=== PATIENT | female | born 1965 | race Two or more races ===

== ENCOUNTER 2021-02-12 12:05 | Inpatient (IN) | payer SELFPAY ==
[~2021-02-12] VITALS: Ht 165.1 cm; Wt 98.7 kg
[~2021-02-12 12:05] MED LIST: NO MEDICATIONS
[2021-02-12] MEDS ORDERED: IV NORMAL SALINE 1000ML BAG 1,000 ML IV ONE ×2 (12:45→14:45)
[2021-02-12] MEDS ORDERED: ONDANSETRON PF 4 MG/2 ML VIAL. IV ONE (12:45)
[2021-02-12] MEDS ORDERED: fentaNYL PF VIAL 100 MCG/2 ML VIAL IV ONE (12:45)
[2021-02-12 12:59] LABS: BILIRUBIN,URINE NEGATIVE (NEG); CLARITY,URINE CLOUDY; COLOR,URINE AMBER; NITRITE,URINE NEGATIVE (NEG); PROTEIN,URINE 30 mg/dL (NEG-TRACE)
[2021-02-12] MEDS ORDERED: ACETAMINOPHEN 500 MG TABLET PO ONE (13:00)
[2021-02-12 13:08] LABS: BACTERIA,URINE MODERATE /HPF (0-FEW); WBC,URINE >40 /HPF (0-4)
[2021-02-12 13:11] LABS: BASO # 0.1 x10^3/uL (0.0-0.2); BASO % 1 % (0-3); EOS # 0.1 x10^3/uL (0.0-0.7); EOS % 0 % (0-3); HEMATOCRIT 37.7 % (36.0-47.0); HEMOGLOBIN 12.8 g/dL (12.0-15.5); LYMPH # 3.1 x10^3/uL (1.0-4.8); LYMPH % 17 % (24-48); MEAN CORPUSCULAR HEMOGLOBIN 30 pg (25-35); MEAN CORPUSCULAR HGB CONC 34 g/dL (31-37); MEAN CORPUSCULAR VOLUME 89 fL (79-100); MONO # 2.2 x10^3/uL (0.0-1.1); MONO % 12 % (0-9); NEUT # 12.6 x10^3/uL (1.8-7.7); NEUT % 70 % (31-73); PLATELET COUNT 332 x10^3/uL (140-400); RED BLOOD COUNT 4.26 x10^6/uL (3.50-5.40); RED CELL DISTRIBUTION WIDTH 13.2 % (11.5-14.5)
[2021-02-12 13:52] LABS: CALCIUM 8.8 mg/dL (8.5-10.1); CREATININE 0.7 mg/dL (0.6-1.0); GFR 86.2; POTASSIUM 3.7 mmol/L (3.5-5.1)
[2021-02-12 13:55] LABS: % ATYL 4 % (0-0); % BANDS 4 % (0-9); % LYMPHS 15 % (24-48); % MONOS 6 % (0-10); % SEGS 71 % (35-66); PLT ESTIMATE ADEQUATE (ADEQUATE)
[2021-02-12 13:56] LABS: POLYCHROMASIA SLIGHT
[2021-02-12 13:57] LABS: TOXIC GRANULATION SLIGHT
[2021-02-12 14:04] LABS: ALBUMIN 2.2 g/dL (3.4-5.0); ALBUMIN/GLOBULIN RATIO 0.4 (1.0-1.7); MAGNESIUM 2.3 mg/dL (1.8-2.4); TOTAL BILIRUBIN 0.8 mg/dL (0.2-1.0); TOTAL PROTEIN 7.7 g/dL (6.4-8.2)
--- NOTE | 2021-02-12 14:12 | RAD ---
Exam Date: 02/12/2021 1:[address] ABDOMEN+PELVIS WO Indication: Reason: flank pain, dysuria, fever / Spl. Instructions: / History: . TECHNIQUE: CT examination of the abdomen and pelvis was performed without oral or intravenous contra st. One or more of the following dose reduction techniques were utilized: *Automated exposure control (AEC) *Adjustment of mA and/or kV according to patient size *Use of iterative reconstruction technique *CT scan done according to ALARA, or ALARA/IMAGE GENTLY FINDINGS: The visualized lung bases demonstrate mild subsegmental atelectasis and/or scarring. There is a calcified gallstone. The liver, gallbladder, spleen, pancreas, and adrenal glands are otherwise normal. There is a 4 mm nonobstructing calculus in the left kidney. There is perinephric stranding bilateral ly, right worse than left. The kidneys are otherwise normal bilaterally. No hydronephrosis or hydroureter is seen. No right ur inary tract calculi are seen. Urinary bladder is normal in appearance. Diverticulosis coli is seen without bowel obstruction or inflammation. The appendix is normal. Mild atherosclerotic calcifications are seen. No lymphadenopathy or ascites is seen. Degenerative changes are seen in the spine. IMPRESSION: Perinephric stranding, right more prominent than left, without obstructing urinary tract calculi seen and without hydronephrosis. Findings are suspicious for pyelonephritis, particularly in the setting of fever. Recently passed calculus blood also be in the differential. Correlate clinically. Nonfloating left renal calculus. No hydronephrosis. Diverticulosis coli without bowel inflammation or obstruction. Electronically signed by: Ricky Garcia MD (02/12/2021 2:09 PM) [id number]
[2021-02-12] MEDS ORDERED: cefTRIAXone IV Push 1 GM VIAL. IVP ONE (14:30)
--- NOTE | 2021-02-12 14:55 | ED.ADGEN ---
Past Medical History Past Surgical History: No Surgical History General Adult EDM: Chief Complaint: BACK PAIN - NO INJURY HPI: HPI: Patient is a 55 year old female who presents to the emergency department with reports of dysuria, increased urinary frequency, bilateral flank pain, lower abdominal pain, nausea, and fever for the last 4 days. Patient denies any shortness of breath, cough, chest pain, vomiting, diarrhea, or rash. She denies any known exposure to COVID-19. Patient states she has not been immunized against COVID-19. Patient denies taking anything for relief of her fever prior to arrival. Currently, rates her pain 8 out of 10 on the pain scale. She denies any alleviating or exacerbating factors. Review of Systems: Review of Systems: Complete ROS is negative unless otherwise noted in HPI. Current Medications: Current Medications Medications (Trade) Dose Ordered Sig/William Start Time Stop Time Status Last Admin Dose Admin Acetaminophen (Tylenol) 650 mg PRN Q6HRS PRN 02/12/21 15:15 Acetaminophen/ Hydrocodone Bitart (Lortab 5/325) 2 tab PRN Q4HRS PRN 02/12/21 15:15 Al Hydroxide/Mg Hydroxide (Mylanta Plus Xs) 30 ml PRN Q3HRS PRN 02/12/21 15:15 Bisacodyl (Dulcolax Supp) 10 mg PRN DAILY PRN 02/12/21 15:15 Calcium Carbonate/ Glycine (Tums) 500 mg PRN Q3HRS PRN 02/12/21 15:15 Ceftriaxone Sodium (Rocephin) 1 gm 1X ONCE 02/12/21 14:30 02/12/21 14:31 DC 02/12/21 15:45 1 GM Fentanyl Citrate (Fentanyl 2ml Vial) 50 mcg 1X ONCE 02/12/21 12:45 02/12/21 12:47 DC 02/12/21 13:33 50 MCG Ibuprofen (Motrin) 400 mg PRN Q4HRS PRN 02/12/21 15:15 Magnesium Hydroxide (Milk Of Magnesia) 2,400 mg PRN Q12HR PRN 02/12/21 15:15 Morphine Sulfate (Morphine Sulfate) 2 mg PRN Q1HR PRN 02/12/21 15:15 Ondansetron HCl (Zofran) 4 mg PRN Q6HRS PRN 02/12/21 15:15 Sodium Chloride 1,000 ml @ 1,000 mls/hr 1X ONCE 02/12/21 14:45 02/12/21 15:44 DC 02/12/21 14:45 1,000 MLS/HR Zolpidem Tartrate (Ambien) 5 mg PRN QHS PRN 02/12/21 15:15 Allergies: Allergies: Allergies Coded Allergies Type Severity Reaction Last Updated Verified No Known Drug Allergies 01/08/14 No Physical Exam: PE: See Above Constitutional: Well developed, well nourished, no acute distress, non-toxic appearance, obese [] HENT: Normocephalic, atraumatic, bilateral external ears normal, nose normal. [] Eyes: PERRLA, EOMI, conjunctiva normal, no discharge. [] Neck: Normal range of motion, no stridor. [] Cardiovascular:Heart rate regular rhythm Lungs & Thorax: Respirations even and unlabored, no retractions, no respiratory distress Abdomen: soft, bilateral lower quadrant tenderness to palpation, no rebound tenderness, no guarding, no palpable mass Back: Bilateral CVA tenderness Skin: Warm, dry, no erythema, no rash. [] Extremities: No cyanosis, ROM intact, no edema. [] Neurologic: Alert and oriented X 3, no focal deficits noted. [] Psychologic: Affect normal, judgement normal, mood normal. [] Current Patient Data: Labs: Laboratory Tests Test 02/12/21 12:30 02/12/21 13:00 02/12/21 13:25 Urine Collection Type Unknown Urine Color Lavonne Urine Clarity Cloudy Urine pH 6.0 (<5.0-8.0) Urine Specific [place] 1.015 (1.000-1.030) Urine Protein 30 mg/dL (NEG-TRACE) Urine Glucose (UA) Negative mg/dL (NEG) Urine Ketones (Stick) Negative mg/dL (NEG) Urine Blood Moderate (NEG) Urine Nitrite Negative (NEG) Urine Bilirubin Negative (NEG) Urine Urobilinogen Dipstick 2.0 mg/dL (0.2 mg/dL) Urine Leukocyte Esterase Large (NEG) Urine RBC 3-5 /HPF (0-2) Urine WBC >40 /HPF (0-4) Urine Squamous Epithelial Cells Few /LPF Urine Bacteria Moderate /HPF (0-FEW) Urine Mucus Slight /LPF White Blood Count 18.0 x10^3/uL (4.0-11.0) H Red Blood Count 4.26 x10^6/uL (3.50-5.40) Hemoglobin 12.8 g/dL (12.0-15.5) Hematocrit 37.7 % (36.0-47.0) Mean Corpuscular Volume 89 fL (79-100) Mean Corpuscular Hemoglobin 30 pg (25-35) Mean Corpuscular Hemoglobin Concent 34 g/dL (31-37) Red Cell Distribution Width 13.2 % (11.5-14.5) Platelet Count 332 x10^3/uL (140-400) Neutrophils (%) (Auto) 70 % (31-73) Lymphocytes (%) (Auto) 17 % (24-48) L Monocytes (%) (Auto) 12 % (0-9) H Eosinophils (%) (Auto) 0 % (0-3) Basophils (%) (Auto) 1 % (0-3) Neutrophils # (Auto) 12.6 x10^3/uL (1.8-7.7) H Lymphocytes # (Auto) 3.1 x10^3/uL (1.0-4.8) Monocytes # (Auto) 2.2 x10^3/uL (0.0-1.1) H Eosinophils # (Auto) 0.1 x10^3/uL (0.0-0.7) Basophils # (Auto) 0.1 x10^3/uL (0.0-0.2) Segmented Neutrophils % 71 % (35-66) H Band Neutrophils % 4 % (0-9) Lymphocytes % 15 % (24-48) L Atypical Lymphocytes % (Manual) 4 % (0-0) H Monocytes % 6 % (0-10) Toxic Granulation Slight Platelet Estimate Adequate (ADEQUATE) Polychromasia Slight Sodium Level 133 mmol/L (136-145) L Potassium Level 3.7 mmol/L (3.5-5.1) Chloride Level 97 mmol/L (98-107) L Carbon Dioxide Level 29 mmol/L (21-32) Anion Gap 7 (6-14) Blood Urea Nitrogen 9 mg/dL (7-20) Creatinine 0.7 mg/dL (0.6-1.0) Estimated GFR (Cockcroft-Gault) 86.2 BUN/Creatinine Ratio 13 (6-20) Glucose Level 121 mg/dL (70-99) H Calcium Level 8.8 mg/dL (8.5-10.1) Magnesium Level 2.3 mg/dL (1.8-2.4) Total Bilirubin 0.8 mg/dL (0.2-1.0) Aspartate Amino Transferase (AST) 44 U/L (15-37) H Alanine Aminotransferase (ALT) 62 U/L (14-59) H Alkaline Phosphatase 229 U/L (46-116) H Total Protein 7.7 g/dL (6.4-8.2) Albumin 2.2 g/dL (3.4-5.0) L Albumin/Globulin Ratio 0.4 (1.0-1.7) L Lipase 196 U/L (73-393) Laboratory Tests 02/12/21 13:00 Laboratory Tests 02/12/21 13:25 Vital Signs: Vital Signs Date Time Temp Pulse Resp B/P (MAP) Pulse Ox O2 Delivery O2 Flow Rate FiO2 02/12/21 15:30 62 97/53 (68) Room Air 02/12/21 15:00 16 02/12/21 13:33 98 02/12/21 12:54 100.6 100.6 EKG: EKG: [] Heart Score: C/O Chest Pain: No Radiology/Procedures: Radiology/Procedures: PROCEDURE: CT ABDOMEN PELVIS WO CONTRAST Exam Date: 02/12/2021 1:[address] ABDOMEN+PELVIS WO Indication: Reason: flank pain, dysuria, fever / Spl. Instructions: / History: . TECHNIQUE: CT examination of the abdomen and pelvis was performed without oral or intravenous contrast. One or more of the following dose reduction techniques were utilized: *Automated exposure control (AEC) *Adjustment of mA and/or kV according to patient size *Use of iterative reconstruction technique *CT scan done according to ALARA, or ALARA/IMAGE GENTLY FINDINGS: The visualized lung bases demonstrate mild subsegmental atelectasis and/or scarring. There is a calcified gallstone. The liver, gallbladder, spleen, pancreas, and adrenal glands are otherwise normal. There is a 4 mm nonobstructing calculus in the left kidney. There is perinephric stranding bilaterally, right worse than left. The kidneys are otherwise normal bilaterally. No hydronephrosis or hydroureter is seen. No right urinary tract calculi are seen. Urinary bladder is normal in appearance. Diverticulosis coli is seen without bowel obstruction or inflammation. The appendix is normal. Mild atherosclerotic calcifications are seen. No lymphadenopathy or ascites is seen. Degenerative changes are seen in the spine. IMPRESSION: Perinephric stranding, right more prominent than left, without obstructing urinary tract calculi seen and without hydronephrosis. Findings are suspicious for pyelonephritis, particularly in the setting of fever. Recently passed calculus blood also be in the differential. Correlate clinically. Nonfloating left renal calculus. No hydronephrosis. Diverticulosis coli without bowel inflammation or obstruction. Electronically signed by: Alex Garcia MD (02/12/2021 2:09 PM) [id number] DICTATED and SIGNED BY: ALEX GARCIA MD DATE: 02/12/21 [id number] [] Course & Med Decision Making: Course & Med Decision Making Pertinent Labs and Imaging studies reviewed. (See chart for details) [id number]-spoke with Dr. Fuentes who is the admitting physician, and care was assumed following discussion of patient. Will admit for acute pyelonephritis. Patient's vital signs stable patient remains afebrile, appears nontoxic, r espirations even and unlabored. Patient will be admitted to the medical/surgical floor. Patient's case and plan of care also discussed with Dr. Muhammad [] Dorothy Disclaimer: Dorothy Disclaimer: This electronic medical record was generated, in whole or in part, using a voice recognition dictation system. Departure Departure Impression: Primary Impression: Acute pyelonephritis Disposition: ADMITTED INPATIENT Admitting Physician: MARIN Membreno) Condition: STABLE Referrals: NO PCP (PCP) INDIGO AUGUSTINE TRACE CLERK Feb 12, 2021 14:55
--- NOTE | 2021-02-12 15:10 | PDOC1 ---
History and Physical Date of Admission Date of Admission DATE: 02/12/21 TIME: 14:56 Identification/Chief Complaint Chief Complaint Dysuria, flank pain Source Source: Caregiver, Chart review, Patient History of Present Illness History of Present Illness Patient 55-year-old primary Burmese-speaking female who presents to the ED with complaints of constant dysuria for the past 4 days. She reports associated bilateral flank pain and abdominal pain. She did not take anything for symptoms and denies any fever. Upon arrival in the ED she was febrile with fever 100.6 F. Labs on admission showed WBC 18, sodium 133, CBG 121, AST 44, ALT 62, alk phos 229, albumin 2.2. CT abdomen pelvis showed perinephric stranding, right more prominent than left, without obstructing urinary tract calculi seen and without hydronephrosis. She received 1 L normal saline and Rocephin 1 g in the ED. Will admit patient for further medical management. Past Medical History Past Medical History Denies significant past medical history Cardiovascular: No pertinent hx Pulmonary: No pertinent hx GI: No pertinent hx Heme/Onc: No pertinent hx Hepatobiliary: No pertinent hx Psych: No pertinent hx Rheumatologic: No pertinent hx Infectious disease: No pertinent hx Renal/: No pertinent hx Endocrine: No pertinent hx Past Surgical History Past Surgical History Right shoulder surgery Past Surgical History: No pertinent history Family History Family History Denies significant family history Social History Smoke: No ALCOHOL: none Drugs: None Current Problem List Problem List Problems Medical Problems: (1) Acute pyelonephritis Status: Acute Current Medications Current Medications Current Medications Sodium Chloride 1,000 ml @ 1,000 mls/hr 1X ONCE IV Last administered on 02/12/21at 13:30; Start 02/12/21 at 12:45; Stop 02/12/21 at 13:44; Status DC Ondansetron HCl (Zofran) 4 mg 1X ONCE IV Last administered on 02/12/21at 13:32; Start 02/12/21 at 12:45; Stop 02/12/21 at 12:47; Status DC Fentanyl Citrate (Fentanyl 2ml Vial) 50 mcg 1X ONCE IV Last administered on 02/12/21at 13:33; Start 02/12/21 at 12:45; Stop 02/12/21 at 12:47; Status DC Acetaminophen (Tylenol) 1,000 mg 1X ONCE PO Last administered on 02/12/21at 13:33; Start 02/12/21 at 13:00; Stop 02/12/21 at 13:01; Status DC Ceftriaxone Sodium (Rocephin) 1 gm 1X ONCE IVP ; Start 02/12/21 at 14:30; Stop 02/12/21 at 14:31; Status DC Sodium Chloride 1,000 ml @ 1,000 mls/hr 1X ONCE IV ; Start 02/12/21 at 14:45; Stop 02/12/21 at 15:44 Active Scripts Active Reported [No Medications] Allergies Allergies: Coded Allergies: No Known Drug Allergies (Unverified , 01/08/14) ROS Review of System GENERAL: No history of weight change, weakness or fevers. SKIN: No bruising, hair changes or rashes. EYES: No blurred, double or loss of vision. NOSE AND THROAT: No history of nosebleeds, hoarseness or sore throat. HEART: Denies chest pain, denies palpitations. LUNGS: Denies cough, hemoptysis, wheezing or shortness of breath. GASTROINTESTINAL: Abdominal pain. Denies nausea, vomiting. GENITOURINARY: Dysuria, bilateral flank pain. Denies hematuria. NEUROLOGIC: Denies history of numbness, tingling, tremor or weakness. PSYCHIATRIC: Denies anxiety, denies depression. ENDOCRINE: No history of heat or cold intolerance, polyuria or polydipsia. EXTREMITIES: Denies muscle weakness, joint pain, pain on walking or stiffness. Physical Exam Physical Exam General: Alert, Oriented X3, Cooperative, moderate distress HEENT: PERRLA, EOMI Lungs: Clear to auscultation, Normal air movement Heart: RRR, no murmurs Cardiovascular: S1, S2 Abdomen: Normal bowel sounds, Soft, bilateral flank tenderness. Extremities: No clubbing, No cyanosis Skin: No rashes, No significant lesion Neuro: Normal speech, Normal tone, Sensation intact Psych/Mental Status: Mental status NL, Mood NL Vitals Vitals Vital Signs Date Time Temp Pulse Resp B/P (MAP) Pulse Ox O2 Delivery O2 Flow Rate FiO2 02/12/21 13:33 16 98 Room Air 02/12/21 12:54 100.6 80 106/53 (99) 100.6 Labs Labs Laboratory Tests Test 02/12/21 12:30 02/12/21 13:00 02/12/21 13:25 Urine Collection Type Unknown Urine Color [place] Urine Clarity Cloudy Urine pH 6.0 (<5.0-8.0) Urine Specific [place] 1.015 (1.000-1.030) Urine Protein 30 mg/dL (NEG-TRACE) Urine Glucose (UA) Negative mg/dL (NEG) Urine Ketones (Stick) Negative mg/dL (NEG) Urine Blood Moderate (NEG) Urine Nitrite Negative (NEG) Urine Bilirubin Negative (NEG) Urine Urobilinogen Dipstick 2.0 mg/dL (0.2 mg/dL) Urine Leukocyte Esterase Large (NEG) Urine RBC 3-5 /HPF (0-2) Urine WBC >40 /HPF (0-4) Urine Squamous Epithelial Cells Few /LPF Urine Bacteria Moderate /HPF (0-FEW) Urine Mucus Slight /LPF White Blood Count 18.0 x10^3/uL (4.0-11.0) Red Blood Count 4.26 x10^6/uL (3.50-5.40) Hemoglobin 12.8 g/dL (12.0-15.5) Hematocrit 37.7 % (36.0-47.0) Mean Corpuscular Volume 89 fL (79-100) Mean Corpuscular Hemoglobin 30 pg (25-35) Mean Corpuscular Hemoglobin Concent 34 g/dL (31-37) Red Cell Distribution Width 13.2 % (11.5-14.5) Platelet Count 332 x10^3/uL (140-400) Neutrophils (%) (Auto) 70 % (31-73) Lymphocytes (%) (Auto) 17 % (24-48) Monocytes (%) (Auto) 12 % (0-9) Eosinophils (%) (Auto) 0 % (0-3) Basophils (%) (Auto) 1 % (0-3) Neutrophils # (Auto) 12.6 x10^3/uL (1.8-7.7) Lymphocytes # (Auto) 3.1 x10^3/uL (1.0-4.8) Monocytes # (Auto) 2.2 x10^3/uL (0.0-1.1) Eosinophils # (Auto) 0.1 x10^3/uL (0.0-0.7) Basophils # (Auto) 0.1 x10^3/uL (0.0-0.2) Segmented Neutrophils % 71 % (35-66) Band Neutrophils % 4 % (0-9) Lymphocytes % 15 % (24-48) Atypical Lymphocytes % (Manual) 4 % (0-0) Monocytes % 6 % (0-10) Toxic Granulation Slight Platelet Estimate Adequate (ADEQUATE) Polychromasia Slight Sodium Level 133 mmol/L (136-145) Potassium Level 3.7 mmol/L (3.5-5.1) Chloride Level 97 mmol/L (98-107) Carbon Dioxide Level 29 mmol/L (21-32) Anion Gap 7 (6-14) Blood Urea Nitrogen 9 mg/dL (7-20) Creatinine 0.7 mg/dL (0.6-1.0) Estimated GFR (Cockcroft-Gault) 86.2 BUN/Creatinine Ratio 13 (6-20) Glucose Level 121 mg/dL (70-99) Calcium Level 8.8 mg/dL (8.5-10.1) Magnesium Level 2.3 mg/dL (1.8-2.4) Total Bilirubin 0.8 mg/dL (0.2-1.0) Aspartate Amino Transf (AST/SGOT) 44 U/L (15-37) Alanine Aminotransferase (ALT/SGPT) 62 U/L (14-59) Alkaline Phosphatase 229 U/L (46-116) Total Protein 7.7 g/dL (6.4-8.2) Albumin 2.2 g/dL (3.4-5.0) Albumin/Globulin Ratio 0.4 (1.0-1.7) Lipase 196 U/L (73-393) Laboratory Tests Test 02/12/21 12:30 02/12/21 13:00 02/12/21 13:25 Urine Collection Type Unknown Urine Color [place] Urine Clarity Cloudy Urine pH 6.0 (<5.0-8.0) Urine Specific [place] 1.015 (1.000-1.030) Urine Protein 30 mg/dL (NEG-TRACE) Urine Glucose (UA) Negative mg/dL (NEG) Urine Ketones (Stick) Negative mg/dL (NEG) Urine Blood Moderate (NEG) Urine Nitrite Negative (NEG) Urine Bilirubin Negative (NEG) Urine Urobilinogen Dipstick 2.0 mg/dL (0.2 mg/dL) Urine Leukocyte Esterase Large (NEG) Urine RBC 3-5 /HPF (0-2) Urine WBC >40 /HPF (0-4) Urine Squamous Epithelial Cells Few /LPF Urine Bacteria Moderate /HPF (0-FEW) Urine Mucus Slight /LPF White Blood Count 18.0 x10^3/uL (4.0-11.0) Red Blood Count 4.26 x10^6/uL (3.50-5.40) Hemoglobin 12.8 g/dL (12.0-15.5) Hematocrit 37.7 % (36.0-47.0) Mean Corpuscular Volume 89 fL (79-100) Mean Corpuscular Hemoglobin 30 pg (25-35) Mean Corpuscular Hemoglobin Concent 34 g/dL (31-37) Red Cell Distribution Width 13.2 % (11.5-14.5) Platelet Count 332 x10^3/uL (140-400) Neutrophils (%) (Auto) 70 % (31-73) Lymphocytes (%) (Auto) 17 % (24-48) Monocytes (%) (Auto) 12 % (0-9) Eosinophils (%) (Auto) 0 % (0-3) Basophils (%) (Auto) 1 % (0-3) Neutrophils # (Auto) 12.6 x10^3/uL (1.8-7.7) Lymphocytes # (Auto) 3.1 x10^3/uL (1.0-4.8) Monocytes # (Auto) 2.2 x10^3/uL (0.0-1.1) Eosinophils # (Auto) 0.1 x10^3/uL (0.0-0.7) Basophils # (Auto) 0.1 x10^3/uL (0.0-0.2) Segmented Neutrophils % 71 % (35-66) Band Neutrophils % 4 % (0-9) Lymphocytes % 15 % (24-48) Atypical Lymphocytes % (Manual) 4 % (0-0) Monocytes % 6 % (0-10) Toxic Granulation Slight Platelet Estimate Adequate (ADEQUATE) Polychromasia Slight Sodium Level 133 mmol/L (136-145) Potassium Level 3.7 mmol/L (3.5-5.1) Chloride Level 97 mmol/L (98-107) Carbon Dioxide Level 29 mmol/L (21-32) Anion Gap 7 (6-14) Blood Urea Nitrogen 9 mg/dL (7-20) Creatinine 0.7 mg/dL (0.6-1.0) Estimated GFR (Cockcroft-Gault) 86.2 BUN/Creatinine Ratio 13 (6-20) Glucose Level 121 mg/dL (70-99) Calcium Level 8.8 mg/dL (8.5-10.1) Magnesium Level 2.3 mg/dL (1.8-2.4) Total Bilirubin 0.8 mg/dL (0.2-1.0) Aspartate Amino Transf (AST/SGOT) 44 U/L (15-37) Alanine Aminotransferase (ALT/SGPT) 62 U/L (14-59) Alkaline Phosphatase 229 U/L (46-116) Total Protein 7.7 g/dL (6.4-8.2) Albumin 2.2 g/dL (3.4-5.0) Albumin/Globulin Ratio 0.4 (1.0-1.7) Lipase 196 U/L (73-393) Images Images PATIENT: MONIQUE HAGEN ACCOUNT: [id number] : 1965 LOCATION: ER AGE: 55 SEX: F EXAM STATUS: REG ER ORD. PHYSICIAN: INDIGO AUGUSTINE APRN REASON: flank pain, dysuria, fever PROCEDURE: CT ABDOMEN PELVIS WO CONTRAST Exam Date: 02/12/2021 1:[address] ABDOMEN+PELVIS WO Indication: Reason: flank pain, dysuria, fever / Spl. Instructions: / History: . TECHNIQUE: CT examination of the abdomen and pelvis was performed without oral or intravenous contrast. One or more of the following dose reduction techniques were utilized: *Automated exposure control (AEC) *Adjustment of mA and/or kV according to patient size *Use of iterative reconstruction technique *CT scan done according to ALARA, or ALARA/IMAGE GENTLY FINDINGS: The visualized lung bases demonstrate mild subsegmental atelectasis and/or scarring. There is a calcified gallstone. The liver, gallbladder, spleen, pancreas, and adrenal glands are otherwise normal. There is a 4 mm nonobstructing calculus in the left kidney. There is perinephric stranding bilaterally, right worse than left. The kidneys are otherwise normal bilaterally. No hydronephrosis or hydroureter is seen. No right urinary tract calculi are seen. Urinary bladder is normal in appearance. Diverticulosis coli is seen without bowel obstruction or inflammation. The appendix is normal. Mild atherosclerotic calcifications are seen. No lymphadenopathy or ascites is seen. Degenerative changes are seen in the spine. IMPRESSION: Perinephric stranding, right more prominent than left, without obstructing urinary tract calculi seen and without hydronephrosis. Findings are suspicious for pyelonephritis, particularly in the setting of fever. Recently passed calculus blood also be in the differential. Correlate clinically. Nonfloating left renal calculus. No hydronephrosis. Diverticulosis coli without bowel inflammation or obstruction. VTE Prophylaxis Ordered VTE Prophylaxis Devices: No VTE Pharmacological Prophylaxi: Yes Assessment/Plan Assessment/Plan Sepsis Right pyelonephritis Left nonobstructing 4 mm kidney stone Transaminitis Severe malnutrition Diverticulosis Plan: Will provide sepsis fluid bolus based on ideal body weight and continue treatment of pyelonephritis with Rocephin 1 gm qd Follow urine culture; provide pain management Strain urine for kidney stones Flomax daily If abdominal pain and transaminitis is not resolved with fluids, will place consultation to GI. FEN - Cardiac diet PPX - Lovenox FULL CODE Dispo - inpatient for above Advance Care Planning: Total time spent [id number] with patient 16 minutes in discussion with goals of care, comfort care, end-of-life care, pain management, code status; patient names her son (Sunil Hagen)as surrogate decision-maker. Justifications for Admission Other Justification ALLEN URENA MD Feb 12, 2021 15:10
[2021-02-12] MEDS ORDERED: ONDANSETRON PF 4 MG/2 ML VIAL. IVP PRN (15:15)
[2021-02-12] MEDS ORDERED: MAG HYDROX/ALUMINUM HYD/SIMETH 30 ML ORAL.SUSP PO PRN (15:15)
[2021-02-12] MEDS ORDERED: BISACODYL 10 MG SUPP.RECT. PR PRN (15:15)
[2021-02-12] MEDS ORDERED: ZOLPIDEM 5 MG TABLET. PO PRN (15:15)
[2021-02-12] MEDS ORDERED: HYDROcodone/APAP 5/325MG 1 TAB TABLET PO PRN ×2 (15:15)
[2021-02-12] MEDS ORDERED: CALCIUM CARBONATE 500 MG TAB.CHEW PO PRN (15:15)
[2021-02-12] MEDS ORDERED: IBUPROFEN 400 MG TABLET. PO PRN (15:15)
[2021-02-12] MEDS ORDERED: MAGNESIUM HYDROXIDE 2,400 MG/30 ML ORAL.SUSP. PO PRN (15:15)
[2021-02-12] MEDS ORDERED: ACETAMINOPHEN 325 MG TABLET. PO PRN (15:15)
[2021-02-12] MEDS ORDERED: MORPHINE SULFATE 2 MG/ML INJ. IV PRN (15:15)
[2021-02-12] MEDS: TAMSULOSIN 0.4 MG CAP.ER.24H. PO SCH (16:00)
[2021-02-12] MEDS: ENOXAPARIN 40 MG/0.4 ML SYRINGE. SQ SCH (16:00)
[2021-02-12 17:24] VITALS: BP 113/41
[2021-02-12 19:00] VITALS: BP 100/43
[2021-02-12 23:00] VITALS: BP 108/43
[2021-02-13] VITALS (7 sets, daily range): BP systolic 97–117; BP diastolic 44–62
[2021-02-13] MEDS: TAMSULOSIN 0.4 MG CAP.ER.24H. PO SCH (08:46)
--- NOTE | 2021-02-13 11:19 | PDOC ---
[facility] PROGRESS NOTE Date of Service DOS: DATE: 02/13/21 TIME: 11:16 Chief Complaint Chief Complaint Sepsis Right pyelonephritis Left nonobstructing 4 mm kidney stone Transaminitis Severe malnutrition Diverticulosis Plan: Will provide sepsis fluid bolus based on ideal body weight and continue treat ment of pyelonephritis with Rocephin 1 gm qd Follow urine culture; provide pain management Strain urine for kidney stones Flomax daily If abdominal pain and transaminitis is not resolved with fluids, will place consultation to GI. FEN - Cardiac diet PPX - Lovenox FULL CODE Dispo - inpatient for above Advance Care Planning: Total time spent [id number] with patient 16 minutes in discussion with goals of care, comfort care, end-of-life care, pain management, code status; patient names her son (Sunil Hagen) as surrogate decision-maker History of Present Illness History of Present Illness Patient 55-year-old primary Kinyarwanda-speaking female who presents to the ED with complaints of constant dysuria for the past 4 days. She reports associated bilateral flank pain and abdominal pain. She did not take anything for symptoms and denies any fever. Upon arrival in the ED she was febrile with fever 100.6 F. Labs on admission showed WBC 18, sodium 133, CBG 121, AST 44, ALT 62, alk phos 229, albumin 2.2. CT abdomen pelvis showed perinephric stranding, right more prominent than left, without obstructing urinary tract calculi seen and without hydronephrosis. She received 1 L normal saline and Rocephin 1 g in the ED. Will admit patient for further medical management. 02/13/2021: She denies any fever, nausea, vomiting. Some abdominal pain; poor appetite. Recommended to advance diet as tolerated and if successful will discharge tomorrow on oral antibiotics to complete outpatient regimen. Vitals/I&O Vitals/I&O: Vital Signs Date Time Temp Pulse Resp B/P (MAP) Pulse Ox O2 Delivery O2 Flow Rate FiO2 02/13/21 07:00 97.8 69 18 109/51 (70) 96 Room Air 97.8 Physical Exam General: Alert, Cooperative, No acute distress Heart: Regular rate Lungs: Clear Abdomen: Normal bowel sounds, Soft Extremities: No clubbing, No cyanosis Skin: No rashes, No breakdown Labs Labs: Laboratory Tests Test 02/12/21 12:30 02/12/21 13:00 02/12/21 13:25 Urine Collection Type Unknown Urine Color [place] Urine Clarity Cloudy Urine pH 6.0 (<5.0-8.0) Urine Specific [place] 1.015 (1.000-1.030) Urine Protein 30 mg/dL (NEG-TRACE) Urine Glucose (UA) Negative mg/dL (NEG) Urine Ketones (Stick) Negative mg/dL (NEG) Urine Blood Moderate (NEG) Urine Nitrite Negative (NEG) Urine Bilirubin Negative (NEG) Urine Urobilinogen Dipstick 2.0 mg/dL (0.2 mg/dL) Urine Leukocyte Esterase Large (NEG) Urine RBC 3-5 /HPF (0-2) Urine WBC >40 /HPF (0-4) Urine Squamous Epithelial Cells Few /LPF Urine Bacteria Moderate /HPF (0-FEW) Urine Mucus Slight /LPF White Blood Count 18.0 x10^3/uL (4.0-11.0) Red Blood Count 4.26 x10^6/uL (3.50-5.40) Hemoglobin 12.8 g/dL (12.0-15.5) Hematocrit 37.7 % (36.0-47.0) Mean Corpuscular Volume 89 fL (79-100) Mean Corpuscular Hemoglobin 30 pg (25-35) Mean Corpuscular Hemoglobin Concent 34 g/dL (31-37) Red Cell Distribution Width 13.2 % (11.5-14.5) Platelet Count 332 x10^3/uL (140-400) Neutrophils (%) (Auto) 70 % (31-73) Lymphocytes (%) (Auto) 17 % (24-48) Monocytes (%) (Auto) 12 % (0-9) Eosinophils (%) (Auto) 0 % (0-3) Basophils (%) (Auto) 1 % (0-3) Neutrophils # (Auto) 12.6 x10^3/uL (1.8-7.7) Lymphocytes # (Auto) 3.1 x10^3/uL (1.0-4.8) Monocytes # (Auto) 2.2 x10^3/uL (0.0-1.1) Eosinophils # (Auto) 0.1 x10^3/uL (0.0-0.7) Basophils # (Auto) 0.1 x10^3/uL (0.0-0.2) Segmented Neutrophils % 71 % (35-66) Band Neutrophils % 4 % (0-9) Lymphocytes % 15 % (24-48) Atypical Lymphocytes % (Manual) 4 % (0-0) Monocytes % 6 % (0-10) Toxic Granulation Slight Platelet Estimate Adequate (ADEQUATE) Polychromasia Slight Sodium Level 133 mmol/L (136-145) Potassium Level 3.7 mmol/L (3.5-5.1) Chloride Level 97 mmol/L (98-107) Carbon Dioxide Level 29 mmol/L (21-32) Anion Gap 7 (6-14) Blood Urea Nitrogen 9 mg/dL (7-20) Creatinine 0.7 mg/dL (0.6-1.0) Estimated GFR (Cockcroft-Gault) 86.2 BUN/Creatinine Ratio 13 (6-20) Glucose Level 121 mg/dL (70-99) Calcium Level 8.8 mg/dL (8.5-10.1) Magnesium Level 2.3 mg/dL (1.8-2.4) Total Bilirubin 0.8 mg/dL (0.2-1.0) Aspartate Amino Transf (AST/SGOT) 44 U/L (15-37) Alanine Aminotransferase (ALT/SGPT) 62 U/L (14-59) Alkaline Phosphatase 229 U/L (46-116) Total Protein 7.7 g/dL (6.4-8.2) Albumin 2.2 g/dL (3.4-5.0) Albumin/Globulin Ratio 0.4 (1.0-1.7) Lipase 196 U/L (73-393) Assessment and Plan Assessmemt and Plan Problems Medical Problems: (1) Acute pyelonephritis Status: Acute Comment Review of Relevant I have reviewed the following items emmie (where applicable) has been applied. Medications: Current Medications Medications (Trade) Dose Ordered Sig/William Route PRN Reason Start Time Stop Time Status Last Admin Dose Admin Sodium Chloride 1,000 ml @ 1,000 mls/hr 1X ONCE IV 02/12/21 12:45 02/12/21 13:44 DC 02/12/21 13:30 Ondansetron HCl (Zofran) 4 mg 1X ONCE IV 02/12/21 12:45 02/12/21 12:47 DC 02/12/21 13:32 Fentanyl Citrate (Fentanyl 2ml Vial) 50 mcg 1X ONCE IV 02/12/21 12:45 02/12/21 12:47 DC 02/12/21 13:33 Acetaminophen (Tylenol) 1,000 mg 1X ONCE PO 02/12/21 13:00 02/12/21 13:01 DC 02/12/21 13:33 Ceftriaxone Sodium (Rocephin) 1 gm 1X ONCE IVP 02/12/21 14:30 02/12/21 14:31 DC 02/12/21 15:45 Sodium Chloride 1,000 ml @ 1,000 mls/hr 1X ONCE IV 02/12/21 14:45 02/12/21 15:44 DC 02/12/21 14:45 Tamsulosin HCl (Flomax) 0.4 mg DAILY PO 02/12/21 16:00 02/13/21 08:46 Acetaminophen/ Hydrocodone Bitart (Lortab 5/325) 1 tab PRN Q4HRS PRN PO MILD PAIN 1-3 02/12/21 15:15 02/12/21 22:02 Justifications for Admission Other Justification ALLEN URENA MD Feb 13, 2021 11:19
--- NOTE | 2021-02-13 11:26 | PDOC ---
Renal-Progress Notes Subjective Notes Notes STILL SOME FLANK PAIN History of Present Illness Hx of present illness NO ACUTE CHANGES Vitals Vitals Vital Signs Date Time Temp Pulse Resp B/P (MAP) Pulse Ox O2 Delivery O2 Flow Rate FiO2 02/13/21 07:00 97.8 69 18 109/51 (70) 96 Room Air 97.8 Weight Weight [ ] Labs Labs Laboratory Tests Test 02/12/21 12:30 02/12/21 13:00 02/12/21 13:25 Urine Collection Type Unknown Urine Color [place] Urine Clarity Cloudy Urine pH 6.0 (<5.0-8.0) Urine Specific [place] 1.015 (1.000-1.030) Urine Protein 30 mg/dL (NEG-TRACE) Urine Glucose (UA) Negative mg/dL (NEG) Urine Ketones (Stick) Negative mg/dL (NEG) Urine Blood Moderate (NEG) Urine Nitrite Negative (NEG) Urine Bilirubin Negative (NEG) Urine Urobilinogen Dipstick 2.0 mg/dL (0.2 mg/dL) Urine Leukocyte Esterase Large (NEG) Urine RBC 3-5 /HPF (0-2) Urine WBC >40 /HPF (0-4) Urine Squamous Epithelial Cells Few /LPF Urine Bacteria Moderate /HPF (0-FEW) Urine Mucus Slight /LPF White Blood Count 18.0 x10^3/uL (4.0-11.0) Red Blood Count 4.26 x10^6/uL (3.50-5.40) Hemoglobin 12.8 g/dL (12.0-15.5) Hematocrit 37.7 % (36.0-47.0) Mean Corpuscular Volume 89 fL (79-100) Mean Corpuscular Hemoglobin 30 pg (25-35) Mean Corpuscular Hemoglobin Concent 34 g/dL (31-37) Red Cell Distribution Width 13.2 % (11.5-14.5) Platelet Count 332 x10^3/uL (140-400) Neutrophils (%) (Auto) 70 % (31-73) Lymphocytes (%) (Auto) 17 % (24-48) Monocytes (%) (Auto) 12 % (0-9) Eosinophils (%) (Auto) 0 % (0-3) Basophils (%) (Auto) 1 % (0-3) Neutrophils # (Auto) 12.6 x10^3/uL (1.8-7.7) Lymphocytes # (Auto) 3.1 x10^3/uL (1.0-4.8) Monocytes # (Auto) 2.2 x10^3/uL (0.0-1.1) Eosinophils # (Auto) 0.1 x10^3/uL (0.0-0.7) Basophils # (Auto) 0.1 x10^3/uL (0.0-0.2) Segmented Neutrophils % 71 % (35-66) Band Neutrophils % 4 % (0-9) Lymphocytes % 15 % (24-48) Atypical Lymphocytes % (Manual) 4 % (0-0) Monocytes % 6 % (0-10) Toxic Granulation Slight Platelet Estimate Adequate (ADEQUATE) Polychromasia Slight Sodium Level 133 mmol/L (136-145) Potassium Level 3.7 mmol/L (3.5-5.1) Chloride Level 97 mmol/L (98-107) Carbon Dioxide Level 29 mmol/L (21-32) Anion Gap 7 (6-14) Blood Urea Nitrogen 9 mg/dL (7-20) Creatinine 0.7 mg/dL (0.6-1.0) Estimated GFR (Cockcroft-Gault) 86.2 BUN/Creatinine Ratio 13 (6-20) Glucose Level 121 mg/dL (70-99) Calcium Level 8.8 mg/dL (8.5-10.1) Magnesium Level 2.3 mg/dL (1.8-2.4) Total Bilirubin 0.8 mg/dL (0.2-1.0) Aspartate Amino Transf (AST/SGOT) 44 U/L (15-37) Alanine Aminotransferase (ALT/SGPT) 62 U/L (14-59) Alkaline Phosphatase 229 U/L (46-116) Total Protein 7.7 g/dL (6.4-8.2) Albumin 2.2 g/dL (3.4-5.0) Albumin/Globulin Ratio 0.4 (1.0-1.7) Lipase 196 U/L (73-393) Review of Systems Constitutional: yes: fever, weakness, alert Ears/Nose/Throat: Yes: no symptom reported Eyes: Yes: no symptom reported Gastrointestional: Yes: nausea, diarrhea Genitourinary: Yes: dysuria Musculoskeletal: Yes: other (RIGHT FLANK PAIN) Skin: Yes no symptom reported Psychiatric/Neurological: Yes: no symptom reported Endocrine: Yes: no symptom reported Physical Exam General Appearance: no apparent distress Skin: warm Respiratory: bilateral CTA Heart: S1S2 Abdomen: soft, bowel sounds present Genitourinary: bladder flat Extremities: pulses present, no edema Neurology: alert, oriented Assessment Assessment IMP UTI-PYELONEPHRITIS SEPSIS NON OBSTRUCTING LEFT RENAL STONE LEUCOCYTOSIS TRANSAMINITIS PLAN HYDRATION ANTIBIOTICS CHANGE TO FLUOROQUINOLONE IF NOT BETTER WILL FOLLOW ANGEL LAURENT MD Feb 13, 2021 11:26
[2021-02-13] MEDS: IV 1/2 NORMAL SALINE 1,000 ML IV SCH ×2 (13:36→22:15)
[2021-02-13] MEDS ORDERED: cefTRIAXone IV Push 1 GM VIAL. IVP SCH (15:00)
[2021-02-13] MEDS: ENOXAPARIN 40 MG/0.4 ML SYRINGE. SQ SCH (18:33)
[2021-02-13] MEDS: LACTOBACILLUS RHAMNOSUS GG 1 CAPSULE. PO SCH (20:11)
[2021-02-14 03:07] VITALS: BP 104/35
[2021-02-14 05:52] LABS: CALCIUM 8.4 mg/dL (8.5-10.1); CREATININE 0.6 mg/dL (0.6-1.0); POTASSIUM 3.9 mmol/L (3.5-5.1)
[2021-02-14 07:00] VITALS: BP 116/77
[2021-02-14] MEDS: IV 1/2 NORMAL SALINE 1,000 ML IV SCH (08:10)
[2021-02-14] MEDS: TAMSULOSIN 0.4 MG CAP.ER.24H. PO SCH (08:10)
[2021-02-14] MEDS: LACTOBACILLUS RHAMNOSUS GG 1 CAPSULE. PO SCH (08:10)
--- NOTE | 2021-02-14 08:40 | PDOC ---
[facility] [facility] PROGRESS NOTE Date of Service DOS: DATE: 02/14/21 TIME: 08:38 Chief Complaint Chief Complaint Sepsis Right pyelonephritis Left nonobstructing 4 mm kidney stone Transaminitis Severe malnutrition Diverticulosis Plan: Will provide sepsis fluid bolus based on ideal body weight and continue treat ment of pyelonephritis with Rocephin 1 gm qd Follow urine culture; provide pain management Strain urine for kidney stones Flomax daily If abdominal pain and transaminitis is not resolved with fluids, will place consultation to GI. FEN - Cardiac diet PPX - Lovenox FULL CODE Dispo - inpatient for above Advance Care Planning: Total time spent [id number] with patient 16 minutes in discussion with goals of care, comfort care, end-of-life care, pain management, code status; patient names her son (Sunil Hagen) as surrogate decision-maker History of Present Illness History of Present Illness Patient 55-year-old primary Portuguese-speaking female who presents to the ED with complaints of constant dysuria for the past 4 days. She reports associated bilateral flank pain and abdominal pain. She did not take anything for symptoms and denies any fever. Upon arrival in the ED she was febrile with fever 100.6 F. Labs on admission showed WBC 18, sodium 133, CBG 121, AST 44, ALT 62, alk phos 229, albumin 2.2. CT abdomen pelvis showed perinephric stranding, right more prominent than left, without obstructing urinary tract calculi seen and without hydronephrosis. She received 1 L normal saline and Rocephin 1 g in the ED. Will admit patient for further medical management. 02/13/2021: She denies any fever, nausea, vomiting. Some abdominal pain; poor appetite. Recommended to advance diet as tolerated and if successful will discharge tomorrow on oral antibiotics to complete outpatient regimen. 02/14/2021: No acute events overnight, afebrile. She denies any further pain. She is tolerating regular diet without nausea, vomiting, or diarrhea. She feels ready to discharge home. Will discharge patient on cefixime 400 mg daily x14 days. Vitals/I&O Vitals/I&O: Vital Signs Date Time Temp Pulse Resp B/P (MAP) Pulse Ox O2 Delivery O2 Flow Rate FiO2 02/14/21 07:00 98.4 64 16 116/77 (90) 95 Room Air 98.4 I & O 02/13/21 02/13/21 02/14/21 15:00 23:00 07:00 Intake Total 1302 ml 740 ml Balance 1302 ml 740 ml Physical Exam General: Alert, Cooperative, No acute distress Heart: Regular rate Lungs: Clear Abdomen: Normal bowel sounds, Soft Extremities: No clubbing, No cyanosis Skin: No rashes, No breakdown Labs Labs: Laboratory Tests Test 02/14/21 04:30 Sodium Level 140 mmol/L (136-145) Potassium Level 3.9 mmol/L (3.5-5.1) Chloride Level 104 mmol/L (98-107) Carbon Dioxide Level 28 mmol/L (21-32) Anion Gap 8 (6-14) Blood Urea Nitrogen 9 mg/dL (7-20) Creatinine 0.6 mg/dL (0.6-1.0) Estimated GFR (Cockcroft-Gault) 103.0 Glucose Level 109 mg/dL (70-99) Calcium Level 8.4 mg/dL (8.5-10.1) Assessment and Plan Assessmemt and Plan Problems Medical Problems: (1) Acute pyelonephritis Status: Acute Comment Review of Relevant I have reviewed the following items emmie (where applicable) has been applied. Medications: Current Medications Medications (Trade) Dose Ordered Sig/William Route PRN Reason Start Time Stop Time Status Last Admin Dose Admin Ceftriaxone Sodium (Rocephin) 1 gm Q24H IVP 02/13/21 15:00 02/13/21 13:36 Lactobacillus Rhamnosus (Culturelle) 1 cap BID PO 02/13/21 21:00 02/14/21 08:10 Sodium Chloride 1,000 ml @ 100 mls/hr Q10H IV 02/13/21 12:00 02/14/21 08:10 Justifications for Admission Other Justification ALLEN URENA MD Feb 14, 2021 08:40
[2021-02-14 09:14] LABS: BASO # 0.1 x10^3/uL (0.0-0.2); BASO % 1 % (0-3); EOS # 0.1 x10^3/uL (0.0-0.7); EOS % 1 % (0-3); HEMATOCRIT 35.3 % (36.0-47.0); HEMOGLOBIN 11.9 g/dL (12.0-15.5); LYMPH # 2.9 x10^3/uL (1.0-4.8); LYMPH % 32 % (24-48); MEAN CORPUSCULAR HEMOGLOBIN 31 pg (25-35); MEAN CORPUSCULAR HGB CONC 34 g/dL (31-37); MEAN CORPUSCULAR VOLUME 91 fL (79-100); MONO # 0.9 x10^3/uL (0.0-1.1); MONO % 9 % (0-9); NEUT # 5.3 x10^3/uL (1.8-7.7); NEUT % 57 % (31-73); PLATELET COUNT 338 x10^3/uL (140-400); RED BLOOD COUNT 3.89 x10^6/uL (3.50-5.40); RED CELL DISTRIBUTION WIDTH 13.7 % (11.5-14.5); WHITE BLOOD COUNT 9.3 x10^3/uL (4.0-11.0)
[2021-02-14 11:00] VITALS: BP 122/61
--- NOTE | 2021-02-14 11:46 | PDOC3 ---
Discharge Summary Visit Information Date of Admission: Feb 12, 2021 Date of Discharge: Feb 14, 2021 Final Diagnosis Problems Medical Problems: (1) Acute pyelonephritis Status: Acute Brief Hospital Course Allergies Allergies Coded Allergies Type Severity Reaction Last Updated Verified No Known Drug Allergies 01/08/14 No Vital Signs Vital Signs Date Time Temp Pulse Resp B/P (MAP) Pulse Ox O2 Delivery O2 Flow Rate FiO2 02/14/21 11:00 98.7 59 18 122/61 (81) 96 Room Air 98.7 Lab Results Laboratory Tests Test 02/12/21 12:30 02/12/21 13:00 02/12/21 13:25 02/14/21 04:30 Urine Collection Type Unknown Urine Color [place] Urine Clarity Cloudy Urine pH 6.0 (<5.0-8.0) Urine Specific [place] 1.015 (1.000-1.030) Urine Protein 30 mg/dL (NEG-TRACE) Urine Glucose (UA) Negative mg/dL (NEG) Urine Ketones (Stick) Negative mg/dL (NEG) Urine Blood Moderate (NEG) Urine Nitrite Negative (NEG) Urine Bilirubin Negative (NEG) Urine Urobilinogen Dipstick 2.0 mg/dL (0.2 mg/dL) Urine Leukocyte Esterase Large (NEG) Urine RBC 3-5 /HPF (0-2) Urine WBC >40 /HPF (0-4) Urine Squamous Epithelial Cells Few /LPF Urine Bacteria Moderate /HPF (0-FEW) Urine Mucus Slight /LPF White Blood Count 18.0 x10^3/uL (4.0-11.0) 9.3 x10^3/uL (4.0-11.0) Red Blood Count 4.26 x10^6/uL (3.50-5.40) 3.89 x10^6/uL (3.50-5.40) Hemoglobin 12.8 g/dL (12.0-15.5) 11.9 g/dL (12.0-15.5) Hematocrit 37.7 % (36.0-47.0) 35.3 % (36.0-47.0) Mean Corpuscular Volume 89 fL (79-100) 91 fL (79-100) Mean Corpuscular Hemoglobin 30 pg (25-35) 31 pg (25-35) Mean Corpuscular Hemoglobin Concent 34 g/dL (31-37) 34 g/dL (31-37) Red Cell Distribution Width 13.2 % (11.5-14.5) 13.7 % (11.5-14.5) Platelet Count 332 x10^3/uL (140-400) 338 x10^3/uL (140-400) Neutrophils (%) (Auto) 70 % (31-73) 57 % (31-73) Lymphocytes (%) (Auto) 17 % (24-48) 32 % (24-48) Monocytes (%) (Auto) 12 % (0-9) 9 % (0-9) Eosinophils (%) (Auto) 0 % (0-3) 1 % (0-3) Basophils (%) (Auto) 1 % (0-3) 1 % (0-3) Neutrophils # (Auto) 12.6 x10^3/uL (1.8-7.7) 5.3 x10^3/uL (1.8-7.7) Lymphocytes # (Auto) 3.1 x10^3/uL (1.0-4.8) 2.9 x10^3/uL (1.0-4.8) Monocytes # (Auto) 2.2 x10^3/uL (0.0-1.1) 0.9 x10^3/uL (0.0-1.1) Eosinophils # (Auto) 0.1 x10^3/uL (0.0-0.7) 0.1 x10^3/uL (0.0-0.7) Basophils # (Auto) 0.1 x10^3/uL (0.0-0.2) 0.1 x10^3/uL (0.0-0.2) Segmented Neutrophils % 71 % (35-66) Band Neutrophils % 4 % (0-9) Lymphocytes % 15 % (24-48) Atypical Lymphocytes % (Manual) 4 % (0-0) Monocytes % 6 % (0-10) Toxic Granulation Slight Platelet Estimate Adequate (ADEQUATE) Polychromasia Slight Sodium Level 133 mmol/L (136-145) 140 mmol/L (136-145) Potassium Level 3.7 mmol/L (3.5-5.1) 3.9 mmol/L (3.5-5.1) Chloride Level 97 mmol/L (98-107) 104 mmol/L (98-107) Carbon Dioxide Level 29 mmol/L (21-32) 28 mmol/L (21-32) Anion Gap 7 (6-14) 8 (6-14) Blood Urea Nitrogen 9 mg/dL (7-20) 9 mg/dL (7-20) Creatinine 0.7 mg/dL (0.6-1.0) 0.6 mg/dL (0.6-1.0) Estimated GFR (Cockcroft-Gault) 86.2 103.0 BUN/Creatinine Ratio 13 (6-20) Glucose Level 121 mg/dL (70-99) 109 mg/dL (70-99) Calcium Level 8.8 mg/dL (8.5-10.1) 8.4 mg/dL (8.5-10.1) Magnesium Level 2.3 mg/dL (1.8-2.4) Total Bilirubin 0.8 mg/dL (0.2-1.0) Aspartate Amino Transf (AST/SGOT) 44 U/L (15-37) Alanine Aminotransferase (ALT/SGPT) 62 U/L (14-59) Alkaline Phosphatase 229 U/L (46-116) Total Protein 7.7 g/dL (6.4-8.2) Albumin 2.2 g/dL (3.4-5.0) Albumin/Globulin Ratio 0.4 (1.0-1.7) Lipase 196 U/L (73-393) Laboratory Tests Test 02/14/21 04:30 White Blood Count 9.3 x10^3/uL (4.0-11.0) Red Blood Count 3.89 x10^6/uL (3.50-5.40) Hemoglobin 11.9 g/dL (12.0-15.5) Hematocrit 35.3 % (36.0-47.0) Mean Corpuscular Volume 91 fL (79-100) Mean Corpuscular Hemoglobin 31 pg (25-35) Mean Corpuscular Hemoglobin Concent 34 g/dL (31-37) Red Cell Distribution Width 13.7 % (11.5-14.5) Platelet Count 338 x10^3/uL (140-400) Neutrophils (%) (Auto) 57 % (31-73) Lymphocytes (%) (Auto) 32 % (24-48) Monocytes (%) (Auto) 9 % (0-9) Eosinophils (%) (Auto) 1 % (0-3) Basophils (%) (Auto) 1 % (0-3) Neutrophils # (Auto) 5.3 x10^3/uL (1.8-7.7) Lymphocytes # (Auto) 2.9 x10^3/uL (1.0-4.8) Monocytes # (Auto) 0.9 x10^3/uL (0.0-1.1) Eosinophils # (Auto) 0.1 x10^3/uL (0.0-0.7) Basophils # (Auto) 0.1 x10^3/uL (0.0-0.2) Sodium Level 140 mmol/L (136-145) Potassium Level 3.9 mmol/L (3.5-5.1) Chloride Level 104 mmol/L (98-107) Carbon Dioxide Level 28 mmol/L (21-32) Anion Gap 8 (6-14) Blood Urea Nitrogen 9 mg/dL (7-20) Creatinine 0.6 mg/dL (0.6-1.0) Estimated GFR (Cockcroft-Gault) 103.0 Glucose Level 109 mg/dL (70-99) Calcium Level 8.4 mg/dL (8.5-10.1) Brief Hospital Course Ms. Hagen is a 55 old female who presented with acute pyelonephritis. She was treated with IV Rocephin, and IV fluids. Consultation placed to nephrology. After her symptoms improved and she was able to tolerate oral diet without nausea/vomiting, she was discharged home to complete her outpatient antibiotic regimen. Discharge Information Condition at Discharge: Improved Disposition/Orders: D/C to Home Miscellaneous Medications [No Medications] , (Reported) Entered as Reported by: REJI MERAZ on 01/08/14 [id number] Justicifation of Admission Dx: Justifications for Admission: Justification of Admission Dx: Yes ALLEN URENA MD Feb 14, 2021 11:45
[2021-02-14] MEDS ORDERED: TAMS0.4C97 PO (11:48)
[2021-02-14] MEDS ORDERED: CEFI400C PO (11:48)
--- NOTE | 2021-02-14 12:46 | NUR ---
patient verbalized understanding of discharge instructions. no questions at this time.
== END 2021-02-14 12:55 | disposition home or self-care (01) | DRG 871 ==
LOC: ER 12:05 → 4 NORTH 15:32
PROVIDERS: ADMIT Family Medicine; ATTEND Family Medicine
DX: A41.9 Sepsis, unspecified organism (principal); E43 Unspecified severe protein-calorie malnutrition; N10 Acute pyelonephritis; K57.30 Diverticulosis of large intestine without perforation or abscess without bleeding; N20.0 Calculus of kidney; Z68.36 Body mass index [BMI] 36.0-36.9, adult; Z79.899 Other long term (current) drug therapy; R74.01 Elevation of levels of liver transaminase levels
CPT/HCPCS: 36415; 74176; 80048; 80053; 81001; 83690; 83735; 85007; 85025; 87077; 87086; 87186; 96361; 96374; 96375; J0696; J1650; J2405; J3010; J3490; J7030; 99285-25; G0378